=== PATIENT | female | born 1970 | race Caucasian/White ===

== ENCOUNTER 2022-05-16 16:16 | Emergency (ER) | payer OTHER, SELFPAY ==
[2022-05-16 16:17] VITALS: BP 201/95; PULSE 98; RESP 20; TEMP 37.6; O2SAT 99
--- NOTE | 2022-05-16 16:36 | ED.GENADULT ---
HPI - General Adult General Chief complaint: Unspecified Stated complaint: breast swelling Time Seen by Provider: 05/16/22 16:19 Source: patient Mode of arrival: ambulatory History of Present Illness HPI narrative: 51-year-old female, smoker with a history of right breast cancer status post mastectomy, status post infection of the left lower anterior abdominal wall( used for breast reconstruction) with scarring presents to the ER with a five-day history of -- left breast enlargement, tenderness, redness around the areola. No nipple discharge. Left nipple is retracted. No lumps noted. No axillary lumps noted. No fever or chills. No prior history of left breast mastitis. Last mammogram done 3 years ago was negative. Onset (ago): day(s) ( Started 5 days ago) Location: chest ( left breast inflammation) and lower extremity Radiation: non-radiation Severity: severe Associated symptoms: denies other symptoms Treatments prior to arrival: none Related Data Allergies Allergy/AdvReac Type Severity Reaction Status Date / Time No Known Allergies Allergy Verified 05/16/22 16:24 Review of Systems Review of Systems: All systems reviewed & are unremarkable except as noted in HPI and below Constitutional: Constitutional: Reports as per HPI and Reports no additional constitutional complaints Eyes: Eyes: Reports as per HPI and Reports no additional eye complaints ENT: Reports system reviewed and no additional complaints, except as documented and Reports as per HPI Cardiovascular: Cardiovascular: Reports as per HPI and Reports no additional cardiovascular complaints Respiratory: Respiratory: Reports as per HPI and Reports no additional respiratory complaints Gastrointestinal: Gastrointestinal: Reports as per HPI and Reports no additional gastrointestinal complaints Genitourinary: Genitourinary: Reports no additional female genitourinary complaints and Reports as per HPI Musculoskeletal: Musculoskeletal: Reports no additional musculoskeletal complaints and Reports as per HPI Integumentary/Breasts: Skin/Breast: Reports system reviewed and no additional complaints, except as docu, Reports breast pain and Reports erythema Comments: left breast redness, tenderness around the areola. Scarring of the left lower abdominal wall- the site of the skin graft. Neurologic: Reports system reviewed and no additional complaints, except as documented and Reports as per HPI Psychiatric: Psychiatric: Reports no additional psychiatric complaints and Reports as per HPI Endocrine: Endocrine: Reports no additional endocrine complaints and Reports as per HPI Hematologic/Lymphatic: Hematologic/Lymphatic: Reports no additional hematologic/lymphatic complaints and Reports as per HPI Allergic/Immunologic: Allergic/Immunologic: Reports no additional allergic/immunologic complaints and Reports as per HPI PMFSH Past Medical History Medical History (Updated 05/16/22 @ 18:13 by Martin Peters MD) Breast cancer Surgical History Surgical History (Updated 05/16/22 @ 16:54 by Martin Peters MD) Hx of total mastectomy of right breast Exam Const: General: no acute distress Nutritional Appearance: well nourished and obese Orientation/consciousness: patient oriented x3 Limitations: no limitations HENMT: Head: normal to inspection Ears: external ears normal Face/Nose/Sinus: Normal external nose present Face and sinus: normal facial exam Mouth: Yes Normal oral and palatal mucosa present Throat: posterior oropharynx normal Eyes: Conjunctivae: conjunctivae normal Pupils: Equal, round and reactive pupils present EOM: EOMs intact bilaterally Direct Ophthalmoscopy: no photophobia Neck: Neck: normal visual inspection and lymphadenopathy Chest: Chest palpation & inspection: normal inspection of the chest Resp: Effort & Inspection: normal respiratory effort Auscultation: diminished lung sounds Cardio: Rate: regular rate Rhythm: regular
[2022-05-16 17:15] LABS: Basophils Absolute Auto 0.03 K/mm3 (0.00-0.10); Basophils Percent Auto 0.2 % (0.0-1.0); Eosinophils Absolute Auto 0.17 K/mm3 (0.02-0.50); Eosinophils Percent Auto 1.2 % (1.0-6.0); Hemoglobin 11.6 g/dL (12.0-15.0); Immature Granulocyte Absolute 0.09 K/mm3 (0.00-0.00); Immature Granulocyte Percent A 0.7 % (0.0-0.0); Lymphocytes Absolute Auto 1.53 K/mm3 (1.10-4.50); Lymphocytes Percent Auto 11.2 % (18.0-42.0); Mean Corpuscular HGB Conc 30.5 g/dL (32.0-36.0); Mean Corpuscular Hemoglobin 23.5 pg (27.0-31.0); Mean Corpuscular Volume 76.9 fL (78.0-102.0); Mean Platelet Volume 9.2 fl (9.2-11.8); Monocytes Absolute Auto 0.64 K/mm3 (0.10-0.90); Monocytes Percent Auto 4.7 % (2.0-11.0); Neutrophils Absolute Auto 11.3 K/mm3 (1.7-7.2); Platelet Count Result 333 K/mm3 (150-420); Red Blood Count 4.94 M/mm3 (4.20-5.40); Red Cell Distribution Width 17.1 % (11.6-14.4); White Blood Count 13.7 K/mm3 (4.8-10.8)
[2022-05-16 17:25] VITALS: BP 136/71; PULSE 80; RESP 18; TEMP 36.6; O2SAT 99
[2022-05-16 17:36] LABS: Alanine Aminotransferase 16 U/L (14-59); Albumin Level 3.3 g/dL (3.4-5.0); Alkaline Phosphatase 101 U/L (46-116); Anion Gap 10 mmol/L (8-16); Aspartate Amino Transferase < 10 U/L (15-37); Bilirubin,Total 0.4 mg/dL (0.00-1.00); Blood Urea Nitrogen 14 mg/dL (7-18); Calcium 8.8 mg/dL (8.5-10.1); Carbon Dioxide 27 mmol/L (21-32); Chloride 100 mmol/L (98-108); Estimated CRCL calculation 100 ml/min; Estimated Glomerular Filt Rate > 60; Glucose 125 mg/dL (70-99); Osmolality Calculated 285 mOsm/kg (285-295); Sodium 137 mmol/L (136-145); Total Protein 7.8 g/dL (6.4-8.2)
[2022-05-16 18:25] VITALS: BP 182/82; PULSE 100; RESP 18; TEMP 38.8; O2SAT 95
[2022-05-16 18:26] VITALS: BP 182/82; PULSE 100; TEMP 38.8; O2SAT 95
[2022-05-16] MEDS: AMOXICILLIN/CLAVULANATE K 875-125 MG TAB 1 TABLET PO (18:29)
[2022-05-16 18:30] VITALS: PULSE 100
[2022-05-16] MEDS: METOPROLOL SUCCINATE EXT REL 25 MG TABCR PO (18:30)
== END 2022-05-16 18:33 | disposition home or self-care (01) ==
PROVIDERS: Emergency Provider Internal Medicine Critical Care Medicine; PCP Family Medicine
DX: N61.0 Mastitis without abscess (principal); I10 Essential (primary) hypertension; Z85.3 Personal history of malignant neoplasm of breast; Z90.11 Acquired absence of right breast and nipple
CPT/HCPCS: 36415; 80053; 83605; 85025; 87040; 99283; A9270